=== PATIENT | female | born 1990 | race Caucasian/White ===

== ENCOUNTER 2024-04-04 12:22 | Emergency (ER) | payer OTHER, SELFPAY ==
[2024-04-04 12:29] VITALS: BP 149/90
--- NOTE | 2024-04-04 13:16 | ED.GENMED ---
History of Present Illness
<Lisa Montano PA-C - Last Filed: 04/04/24 20:54>
General
Chief Complaint: Back Pain
Source: patient
Exam Limitations: none
Time Seen by Provider: 04/04/24 12:58
Nursing documentation reviewed up to this point in time: agreed with
Travel History
Have you had any contact with someone who has COVID-19?: No
Do you have any symptoms of coronavirus? Fever > 100 degrees, chills, cough, shortness of breath, sore throat, loss of taste or smell, muscle aches, or headache?: No
History of Present Illness
History of Present Illness:
This is a 34 y/o female with a PMH of hypothyroidism, HTN, prediabetes presenting emergency department today with concerns of back pain. Patient states that this started a few weeks ago and initially, was not very severe. She thought nothing of it
and started taking ibuprofen which she did find relief with. 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
lot without experiencing significant pain. Patient denies fevers or chills, chest pain, shortness of breath, urinary incontinence, fecal incontinence, dysuria, hematuria. Patient denies nausea or vomiting. Patient denies radiation of the pain to
the abdomen. Patient denies any history of cancer. Patient denies any history of IV drug use. Patient saw her primary care provider yesterday and was given Flexeril as well as put on a Medrol Dosepak. Patient states that she had only had 1 dose
of each of these and not had any relief.
Past History
<Lisa Montano PA-C - Last Filed: 04/04/24 20:54>
Past History
ED Past Medical History: NIDDM and Hypothyroidism
ED Past Surgical History: None
Patient has exhibited threatening behavior?: No
Social History
Tobacco: Non-smoker
Alcohol: Occasional
Drug: None
Personal:
Living: with family
Employment: Employed
Family History
Family History: Other; Negative Early CAD or CAD
Review of Systems
<Lisa Montano PA-C - Last Filed: 04/04/24 20:54>
Review of Systems
All Other Systems: ROS reviewed and negative except as documented in HPI and ROS
Phy Exam
<Lisa Montano PA-C - Last Filed: 04/04/24 20:54>
Physical Exam
Physical Exam:
Vitals: Vitals are stable
General: Patient is well appearing and in no acute distress; non-toxic
Skin: Warm and dry, no rashes or lesions
Head: Normocephalic, atraumatic
Eyes: Sclera non-icteric. EOMs intact. PERRLA.
Cardiac: Regular rate and rhythm, no murmurs.
Peripheral Vascular: No lower extremity swelling or edema.
Pulm: Normal respiratory effort
Abdomen: No abdominal tenderness to palpation
Musculoskeletal: No palpable bony deformities of the spine. Patient does have some moderate tenderness to palpation the lower lumbar spine paraspinal muscles.
Neuro: CN II-XII intact, no focal neurologic deficits. 2+ patellar reflexes bilaterally.
Psychiatric: Appropriate mood and affect.
Course
<Lisa Montano PA-C - Last Filed: 04/04/24 20:54>
Orders/Labs/Results
Orders:
Orders
04/04/24 13:41
Lumbar Spine, 2 or 3 View [CR Lumbar Spine 2 Or 3 Views] Urgent
Comment:
Reason For Exam: low back pain
Vital Signs
Initial and Last Documented VS:
Initial Vital Signs
Temp Pulse Resp BP Pulse Ox
98.6 F 94 16 149/90 98
04/04/24 12:29 04/04/24 12:29 04/04/24 12:29 04/04/24 12:29 04/04/24 12:29
Last Documented Vital Signs
Temp Pulse Resp BP Pulse Ox
98.6 F 94 16 149/90 98
04/04/24 12:29 04/04/24 12:29 04/04/24 12:29 04/04/24 12:29 04/04/24 12:29
<Liane Guerrero MD - Last Filed: 04/04/24 14:40>
Orders/Labs/Results
Orders:
Orders
04/04/24 13:41
Lumbar Spine, 2 or 3 View [CR Lumbar Spine 2 Or 3 Views] Urgent
Comment:
Reason For Exam: low back pain
Vital Signs
Initial and Last Documented VS:
Initial Vital Signs
Temp Pulse Resp BP Pulse Ox
98.6 F 94 16 149/90 98
04/04/24 12:29 04/04/24 12:29 04/04/24 12:29 04/04/24 12:29 04/04/24 12:29
Last Documented Vital Signs
Temp Pulse Resp BP Pulse Ox
98.6 F 94 16 149/90 98
04/04/24 12:29 04/04/24 12:29 04/04/24 12:29 04/04/24 12:29 04/04/24 12:29
<Lisa Montano PA-C - Last Filed: 04/04/24 20:54>
MDM/Problems Addressed
Differential Diagnosis Includes:
Differentials include musculoskeletal sprain/strain, herniated nucleus pulposus, sciatica, osteoarthritis, scoliosis
MDM/Problems Addressed:
Low back pain
Chronic conditions affecting care:
htn, diabetes, hypothyroidism
Acute Exacerbation and/or Progression of Chronic Illness:
htn--no indication for acute lowering of blood pressure at this time
<Lisa Montano PA-C - Last Filed: 04/04/24 20:54>
*Radiology
Radiology exam reviewed: preliminary read by ED provider (no acute fracture or dislocation)
*Pulse Oximetry
Patient hypoxic: no
*Critical Care Note
Total Time (30-74mins, 75-104mins- exclusive of procedures): Not Applicable
Data Reviewed
Review of Other/Old Records Reveals: Records (Reviewed ER physician mentation from 12/30/19) and Discharge Summary (no recent discharge summaries to review)
Source: patient and records
<Lisa Montano PA-C - Last Filed: 04/04/24 20:54>
Patient Management
Escalation/DeEscalation of care consider admission/obs:
This is a 34 y/o female with a PMH of hypothyroidism, HTN, prediabetes presenting emergency department today with concerns of back pain. Patient states that this started a few weeks ago and initially, was not very severe. Now a lot worse. Any
movement makes the pain worse. Patient is able to ambulate without difficulty however. She did see her primary care provider yesterday who prescribed her Flexeril and started her on Medrol Dosepak. Patient states that she is taken 1 dose of each
without relief. We discussed how steroids can take a bit of time to work, she will continue to take this. I did switch her muscle relaxant for her to baclofen to see if this will help her find relief, I also offered gabapentin however patient has
a family history of adverse reactions to this medication. X-ray of the lumbar spine demonstrates no to space narrowing. Patient stable for discharge at this point to follow-up with an orthopedist should her symptoms not resolve over her primary
care provider. Patient in agreement with plan
<Lisa Montano PA-C - Last Filed: 04/04/24 20:54>
Update Note
Update Note:
2:00 PM-- discussed trying gabapentin now, patient concerned about side effects as family has poor tolerance to this medication, discussed with patient how we need to give the steroids a chance to work
ED Attending Note
<Lisa Montano PA-C - Last Filed: 04/04/24 20:54>
-
Portions of this chart may have been created with voice recognition software.� Occasional wrong word or��sound alike� substitutions may have occurred due to the inherent limitations of voice recognition software.
<Liane Geurrero MD - Last Filed: 04/04/24 14:40>
ED Attending Note
Patient seen and examined by attending physician: Yes
I performed the substantive portion of visit, reviewed & personally made and approve the management plan that is documented in note by myself or MARIO.: Yes
ED Attending Note:
34 yr old female with lbp, began a few days ago, not sudden, no assoc abd pain/f/c/n/v/incont/numb/tingling/weakness. On exam, pt moves about easily, in no distress, no skin changes, etc. Motor 5/5, sens intact. Suspect msk vs sciatica, doubt k
stone/AAA/CE given reassuring exam and hx. Pain is 'spasm' in nature, worse with certain movement.
Discharge Plan
Departure
Patient Disposition: Home (Routine Discharge)
Date of Disposition: 04/04/24
Time of Disposition: 15:06
Patient with high blood pressure during this ER visit?: Yes
Condition: Good
Discharge Problem:
Low back pain
Instructions: Low Back Pain (DC), BLOOD PRESSURE
Prescriptions:
New
baclofen 5 mg tablet
5 mg PO Q8H Qty: 10 0RF
No Action
Levothyroxine
150 mcg PO DAILY
PNV cmb#95-ferrous fumarate-FA [] 1 EACH tablet
1 ea PO DAILY
acetaminophen 325 MG tablet
650 mg PO Q4HPRN PRN (Reason: mild pain) 0RF
sennosides-docusate sodium 1 TABLET tablet
1 tab PO DAILYPRN PRN (Reason: constipation) Qty: 30 0RF
ferrous sulfate [FeroSul] 325 MG tablet
325 mg PO BID Qty: 60 0RF
ibuprofen 600 MG tablet
600 mg PO Q6HPRN PRN (Reason: moderate pain/cramps) Qty: 90 0RF
Referrals:
Rajani Dillon PA [Family Provider] -
Brad Schaefer MD [Active] - Call in 1-3 days for appt
Activity Restrictions/Additional Instructions:
Please stop taking the flexaril. You can try baclofen. You can take one tablet every 8 hours as needed to muscle spasm.
You x-ray showed no disc space narrowing and no evidence of arthritis.
Please call the attached number to schedule an appointment with the orthopedist. You may need an MRI in the future. Although, I do suspect your will resolve spontaneously.
Please return emergency department should you develop fevers or chills, urinary incontinence, fecal incontinence, numbness or tingling in the genital region, inability to walk, chest pain, shortness of breath, syncopal episodes, or any other
concerning signs or symptoms.
Interventions
Interventions:
*Risk Screen - Suicide Last Done: 04/04/24 13:15
*General Assessment Last Done: 04/04/24 13:15
*Neglect/Abuse Screening Last Done: 04/04/24 13:15
ED- Fall Risk Assessment Last Done: 04/04/24 15:15
*ED COVID-19 Vaccine History Last Done: 04/04/24 12:29
*Nursing Disposition Last Done: 04/04/24 15:15
ED-Musculoskeletal Assessment Last Done: 04/04/24 13:15
Discharge Date and Time
Discharge Date/Time: 04/04/24 15:16
Print Language: [place]
== END 2024-04-04 15:16 | disposition home or self-care (01) ==
LOC: EMR 12:22
PROVIDERS: EMERGENCY PHYSICIAN Emergency Medicine; FAMILY PHYSICIAN Physician Assistant Medical
DX: M54.50 Low back pain, unspecified (principal); E03.9 Hypothyroidism, unspecified; I10 Essential (primary) hypertension; R73.03 Prediabetes
CPT/HCPCS: 99283; 72100